=== PATIENT | female | born 1995 | race Two or more races ===

== ENCOUNTER 2016-11-22 19:34 | Emergency (ER) | payer MEDICAID, OTHER ==
[~2016-11-22] VITALS: Ht 170.2 cm; Wt 64.4 kg
[2016-11-22] MEDS ORDERED: TETANUS-DIPTH-ACEL PERTUSSIS 0.5ML SYRG IM ONE (21:00)
[2016-11-22 21:08] VITALS: BP 140/68
== END 2016-11-22 21:29 | disposition home or self-care (01) ==
LOC: ER 19:37
DX: S61.211A Laceration without foreign body of left index finger without damage to nail, initial encounter (principal); Y28.8XXA Contact with other sharp object, undetermined intent, initial encounter; Y93.89 Activity, other specified; Y99.0 Civilian activity done for income or pay; Y92.69 Other specified industrial and construction area as the place of occurrence of the external cause
CPT/HCPCS: 90471; 90715

== ENCOUNTER 2017-04-09 16:44 | Emergency (ER) | payer MEDICAID, OTHER ==
[~2017-04-09] VITALS: Ht 167.6 cm; Wt 63.5 kg
[2017-04-09 18:11] VITALS: BP 119/65
== END 2017-04-09 19:20 | disposition home or self-care (01) ==
LOC: ER 16:45
DX: S56.111A Strain of flexor muscle, fascia and tendon of right index finger at forearm level, initial encounter (principal); X58.XXXA Exposure to other specified factors, initial encounter; Y93.89 Activity, other specified; Y99.8 Other external cause status; Y92.69 Other specified industrial and construction area as the place of occurrence of the external cause; Z91.011 Allergy to milk products
CPT/HCPCS: 36415; 73140; 84702

== ENCOUNTER → 2020-04-07 | Outpatient (CLI) | payer BC ==
[2020-04-07 09:37] LABS: Basophils # (auto) 0.1 10 ^3/uL (0-0.2); Basophils % (auto) 0.7 % (0.0-2.0); Eosinophils # (auto) 0.3 10 ^3/uL (0-0.8); Eosinophils % (auto) 3.3 % (0.0-7.0); Hematocrit 45.4 % (36.0-46.0); Hemoglobin 15.3 g/dL (12.2-16.2); Lymphocytes # (auto) 2.3 10 ^3/uL (0.4-5.4); Lymphocytes % (auto) 26.1 % (10.0-50.0); Mean Corpuscular Hemoglobin 28.9 pg (28.0-32.0); Mean Corpuscular Hgb Conc. 33.6 g/dL (32.0-36.0); Mean Corpuscular Volume 85.9 fL (80.0-100.0); Monocytes # (auto) 0.6 10 ^3/uL (0-1.3); Monocytes % (auto) 6.7 % (0.0-12.0); Neutrophils # (auto) 5.7 10 ^3/uL (1.6-8.6); Neutrophils % (auto) 63.2 % (37.0-80.0); Nucleated Red Blood Cells % 0.1 %; Platelet Count (auto) 359 10^3/uL (140-450); Red Blood Cells 5.28 10^6/uL (4.0-5.20); Red Cell Distribution Width 13.4 % (11.8-14.3); Urine Bacteria NONE SEEN /hpf (None Seen); Urine Blood Negative /uL (Negative); Urine Mucus FEW (None Seen); Urine WBC 6 /hpf (0 - 5)
[2020-04-07 10:17] LABS: Albumin 3.9 g/dL (3.4-5.0); Calcium 9.4 mg/dL (8.5-10.1); Potassium 4.5 mmol/L (3.5-5.1)
[2020-04-07 10:23] LABS: BUN/Creatinine Ratio 16.4; Bilirubin, Total 1.1 mg/dL (0.2-1.0); Total Protein 8.2 g/dL (6.4-8.2)
== END | disposition home or self-care (01) ==
LOC: LAB 09:20
PROVIDERS: ATTEND Nurse Practitioner
DX: E78.5 Hyperlipidemia, unspecified (principal); I10 Essential (primary) hypertension
CPT/HCPCS: 36415; 80053; 80061; 81001; 84443; 85025

== ENCOUNTER → 2021-06-08 | Outpatient (CLI) | payer BC ==
[2021-06-08 07:24] LABS: Basophils # (auto) 0.1 10 ^3/uL (0-0.2); Basophils % (auto) 0.9 % (0.0-2.0); Eosinophils # (auto) 0.2 10 ^3/uL (0-0.8); Eosinophils % (auto) 2.5 % (0.0-7.0); Hematocrit 41.7 % (36.0-46.0); Hemoglobin 14.4 g/dL (12.2-16.2); Lymphocytes # (auto) 2.4 10 ^3/uL (0.4-5.4); Lymphocytes % (auto) 25.1 % (10.0-50.0); Mean Corpuscular Hemoglobin 29.4 pg (28.0-32.0); Mean Corpuscular Hgb Conc. 34.6 g/dL (32.0-36.0); Mean Corpuscular Volume 84.9 fL (80.0-100.0); Monocytes # (auto) 0.7 10 ^3/uL (0-1.3); Neutrophils # (auto) 6.1 10 ^3/uL (1.6-8.6); Neutrophils % (auto) 64.5 % (37.0-80.0); Red Blood Cells 4.91 10^6/uL (4.0-5.20); Red Cell Distribution Width 13.1 % (11.8-14.3); White Blood Cell 9.5 10^3/uL (4.4-10.8)
[2021-06-08 07:32] LABS: Urine Bacteria NONE SEEN /hpf (None Seen); Urine Blood 1+ /uL (Negative); Urine Mucus FEW (None Seen); Urine Specific Gravity 1.024 (1.001-1.035); Urine WBC 1 /hpf (0 - 5)
[2021-06-08 07:58] LABS: Albumin 3.6 g/dL (3.4-5.0); Calcium 9.2 mg/dL (8.5-10.1); Potassium 4.2 mmol/L (3.5-5.1)
[2021-06-08 08:05] LABS: BUN/Creatinine Ratio 15.2; Bilirubin, Total 1.5 mg/dL (0.2-1.0)
== END | disposition home or self-care (01) ==
LOC: LAB 07:08
PROVIDERS: ATTEND Nurse Practitioner
DX: I10 Essential (primary) hypertension (principal); E78.5 Hyperlipidemia, unspecified; R73.9 Hyperglycemia, unspecified
CPT/HCPCS: 36415; 80053; 80061; 81001; 83036; 84443; 85025

== ENCOUNTER → 2023-01-22 | Outpatient (CLI) | payer BC ==
[2023-01-22 09:10] LABS: Basophils # (auto) 0.1 10 ^3/uL (0-0.2); Basophils % (auto) 0.9 % (0.0-2.0); Eosinophils # (auto) 0.2 10 ^3/uL (0-0.8); Eosinophils % (auto) 2.3 % (0.0-7.0); Hematocrit 43.8 % (36.0-46.0); Hemoglobin 15.2 g/dL (12.2-16.2); Lymphocytes # (auto) 2.3 10 ^3/uL (0.4-5.4); Lymphocytes % (auto) 26.8 % (10.0-50.0); Mean Corpuscular Hemoglobin 29.7 pg (28.0-32.0); Mean Corpuscular Hgb Conc. 34.6 g/dL (32.0-36.0); Mean Corpuscular Volume 85.7 fL (80.0-100.0); Monocytes # (auto) 0.5 10 ^3/uL (0-1.3); Monocytes % (auto) 6.1 % (0.0-12.0); Neutrophils # (auto) 5.5 10 ^3/uL (1.6-8.6); Neutrophils % (auto) 63.9 % (37.0-80.0); Nucleated Red Blood Cells % 0.2 %; Red Blood Cells 5.11 10^6/uL (4.0-5.20); Red Cell Distribution Width 13.2 % (11.8-14.3); White Blood Cell 8.7 10^3/uL (4.4-10.8)
[2023-01-22 09:21] LABS: Urine Bacteria NONE SEEN /hpf (None Seen); Urine Blood Negative /uL (Negative); Urine Specific Gravity 1.017 (1.001-1.035); Urine WBC 1 /hpf (0 - 5)
[2023-01-22 09:54] LABS: Calcium 9.2 mg/dL (8.5-10.1); Potassium 3.8 mmol/L (3.5-5.1)
[2023-01-22 10:06] LABS: BUN/Creatinine Ratio 13.6; Total Protein 8.5 g/dL (6.4-8.2)
[2023-01-23 08:06] LABS: RPR Non Reactive (Non Reactive)
== END | disposition home or self-care (01) ==
LOC: LAB 08:20
PROVIDERS: ATTEND Nurse Practitioner
DX: Z11.3 Encounter for screening for infections with a predominantly sexual mode of transmission (principal); I10 Essential (primary) hypertension; E78.5 Hyperlipidemia, unspecified
CPT/HCPCS: 36415; 80053; 80061; 81001; 84443; 85025; 86592; 86703; 87340

== ENCOUNTER → 2023-08-30 | Outpatient (CLI) | payer BC ==
[2023-08-30 12:09] LABS: Basophils # (auto) 0.1 10 ^3/uL (0-0.2); Basophils % (auto) 0.7 % (0.0-2.0); Eosinophils # (auto) 0.5 10 ^3/uL (0-0.8); Eosinophils % (auto) 5.3 % (0.0-7.0); Hematocrit 43.2 % (36.0-46.0); Hemoglobin 14.8 g/dL (12.2-16.2); Lymphocytes % (auto) 31.9 % (10.0-50.0); Mean Corpuscular Hemoglobin 29.6 pg (28.0-32.0); Mean Corpuscular Hgb Conc. 34.2 g/dL (32.0-36.0); Mean Corpuscular Volume 86.5 fL (80.0-100.0); Monocytes # (auto) 0.7 10 ^3/uL (0-1.3); Monocytes % (auto) 7.3 % (0.0-12.0); Neutrophils # (auto) 5.1 10 ^3/uL (1.6-8.6); Neutrophils % (auto) 54.8 % (37.0-80.0); Nucleated Red Blood Cells % 0.1 %; Red Blood Cells 4.99 10^6/uL (4.0-5.20); Red Cell Distribution Width 13.3 % (11.8-14.3); White Blood Cell 9.3 10^3/uL (4.4-10.8)
[2023-08-30 12:17] LABS: Urine Bacteria NONE SEEN /hpf (None Seen); Urine Blood Negative /uL (Negative); Urine Clarity Clear (Clear); Urine Color Yellow (Yellow); Urine Protein, UAD Negative (Negative); Urine Specific Gravity 1.016 (1.001-1.035); Urine Urobilinogen Normal (Negative); Urine WBC <1 /hpf (0 - 5)
[2023-08-30 12:24] LABS: Alanine Aminotransferase 12 U/L (7-40); Albumin 4.4 g/dL (3.2-4.8); Alkaline Phosphatase 100 U/L (46-116); Calcium 9.6 mg/dL (8.5-10.1); Carbon Dioxide 28 mmol/L (20-30); Chloride 106 mmol/L (98-107); Glucose 82 mg/dL (74-106)
[2023-08-30 12:25] LABS: Anion Gap 5 (5-15); Aspartate Aminotransferase 8 U/L (13-40); Cholesterol 159 mg/dL (< 200); Potassium 4.5 mmol/L (3.5-5.1); Sodium 139 mmol/L (136-145)
[2023-08-30 12:41] LABS: BUN/Creatinine Ratio 8.5 (10.0-20.0); Blood Urea Nitrogen 6 mg/dL (9-23); LDL Cholesterol 96 mg/dL (< 100); Triglycerides 111 mg/dL (< 150)
[2023-08-30 12:42] LABS: HDL Cholesterol 50 mg/dL (40-59)
[2023-08-30 12:43] LABS: Bilirubin, Total 1.1 mg/dL (0.2-1.0); Total Protein 7.7 g/dL (5.7-8.2)
== END | disposition home or self-care (01) ==
LOC: LAB 11:52
PROVIDERS: ATTEND Nurse Practitioner
DX: I10 Essential (primary) hypertension (principal); E78.5 Hyperlipidemia, unspecified
CPT/HCPCS: 36415; 80053; 80061; 81001; 83036; 85025

== ENCOUNTER 2024-10-01 08:18 | Emergency (ER) | payer BC, MEDICAID ==
[~2024-10-01] VITALS: Ht 175.3 cm; Wt 78.0 kg
[~2024-10-01 08:18] MED LIST: IBUP-1454 PO
[2024-10-01 08:50] VITALS: BP 128/94; PULSE 84; RESP 17; TEMP 98.7; O2SAT 98
--- NOTE | 2024-10-01 09:11 | DVH ---
CLINICAL INDICATION: pain TECHNIQUE: 3 radiographic views of the right shoulder were obtained. Comparison: None FINDINGS/IMPRESSION: There is no evidence of acute fracture or dislocation. The visualized joint space is well maintained. The alignment is anatomical. There is no radiopaque foreign body.
--- NOTE | 2024-10-01 09:22 | ED.PDOC ---
Musculoskeletal HPI Comments 29 year old presents for right shoulder pain. She is right hand dominant. Described as persistent pain Onset:7 days ago and started suddenly. No injury or trauma Therapies tried: Nothing Denies fevers chills night sweats nausea vomiting redness around the shoulder Denies previous surgeries to the shoulder or significant injury Numbness/tingling down the arm Denies changes, shortness of breath Chief Complaint: Upper Extremity Time Seen by MD: 08:27 Primary Care Provider: NONE Reviewed Notes: Nurses Notes, Medications, Allergies Allergies: Uncoded Allergies: DAIRY (Allergy, Unknown, 11/22/16) Home Meds Active Scripts Ibuprofen (Ibuprofen) 600 Mg Tab, 1 TAB PO Q6HP PRN, #20 TAB Prov:MARIE KARU Nayeli PAC 03/02/24 Information Source: Patient Mode of Arrival: Ambulatory Past Medical History PAST MEDICAL HISTORY: Denies Surgical History: Denies all surgeries RESEARCH ENGINEER History: Ovarian Cysts Family History Family History: Reviewed,noncontributory to illness, Unobtainable Social History Smoker: Non-Smoker Alcohol: Occasionally Drugs: Denies Drug Use Lives In: Home All Other Systems: Reviewed and Negative (Per HPI) Physical Exam General Appearance: No Apparent Distress, Normal HEENT: Normal ENT Inspection, Pharynx Normal, TMs Normal Neck: Full Range of Motion, Non-Tender, Normal, Normal Inspection Respiratory: Chest Non-Tender, Lungs Clear, No Accessory Muscle Use, No Respiratory Distress, Normal Breath Sounds Cardiovascular: No Edema, No JVD, No Murmur, No Gallop, Normal Peripheral Pulses, Regular Rate/Rhythm Breast Exam: Deferred Gastrointestinal: No Organomegaly, Non Tender, No Pulsatile Mass, Normal Bowel Sounds, Soft Genitalia: Deferred Pelvic: Deferred Rectal: Deferred Extremities: No calf tenderness, Normal capillary refill, Normal inspection, Normal range of motion, Non-tender, No pedal edema Musculoskeletal : Extremity Location: Shoulder ( No gross abnormality on inspection. No shoulder drop visible. No clavicular tenderness on palpation. Palpation tenderness to coracoid process and acromion process. No scapular, supraspinat us, infraspinatus tenderness to touch. Limited flexion passive movement due to pain. Pain with abduction. ) Apperance: Normal Neurologic: Alert, printer apprentice II-XII nml as Tested, No Motor Deficits, Normal Affect, Normal Mood, No Sensory Deficits Cerebellar Function: Normal Reflexes: Normal Skin: Dry, Normal Color, Warm Lymphatic: No Adenopathy Was a procedure done? Was a procedure done?: No Differential Diagnosis EXT Differential Diagnosis: Fracture, Sprain, Dislocation X-Ray, Labs, Meds, VS Vital Signs Date Time Temp Pulse Resp B/P (MAP) Pulse Ox O2 Delivery O2 Flow Rate FiO2 10/01/24 08:50 98.7 84 17 128/94 (105) 98 98.7 10/01/24 08:50 84 17 98 Room Air 10/01/24 08:30 98.7 84 17 128/94 (105) 98 X-Ray, Labs, Meds, VS Comment After ROS physical examination no acute injury. Prior to discharge, symptomatic treatment was provided patient reported significant improvement. Findings are consistent with a internal derangement of the shoulder. Patient advised to follow up with PCP and obtain an MRI Patient is stable for discharge at this time. External notes reviewed. Test results and diagnostic imaging interpreted. All diagnostic findings, discharge care, education and instructions provided Follow-up with PCP in 2 to 3 days Patient verbalized understanding and agreed to treatment plan Vital signs stable, afebrile, no acute distress noted Patient ambulatory with strong steady gait Advised to return precautions for any new or worsening symptoms, return to ER immediately for re-evaluation Patient is aware that the purpose of this visit was for an acute medical emergency requiring emergent stabilization. Chronic conditions, including malignancies have not been ruled out. Patient is instructed to follow up with PCP as directed and discharge instructions for continued care and workup. If unable to arrange follow-up, patient is to return to the emergency department for reassessment. Patient (parent or legal guardian if applicable) was given verbal and written discharge instructions and acknowledges understanding. Time of 1ST Reevaluation: 09:20 Reevaluation 1ST: Improved Patient Education/Counseling: Diagnosis, Treatment Family Education/Counseling: Diagnosis, Treatment Departure 1 Departure Time of Disposition: 09:46 Impression: Primary Impression: Internal derangement of right shoulder Disposition: 01 HOME / SELF CARE / HOMELESS Condition: Stable Discharged With: Self Critical Care Note Critical Care Time?: No Stability Stability form required: No Heart Score Heart Score: Heart Score Response (Comments) Value History N/A 0 EKG N/A 0 Age N/A 0 Risk Factors N/A 0 Troponin N/A 0 Total 0 JARED KING NP Oct 01, 2024 09:22
[2024-10-01] MEDS: KETOROLAC TROMETH 30 MG/ML 1ML VIAL IM ONE (09:53)
[2024-10-01] MEDS: methylPREDNISolone SOD SUCC 125 MG/2 ML VL IM ONE (09:54)
[2024-10-01] MEDS ORDERED: NAPR-746 PO (16:13)
== END 2024-10-01 10:25 | disposition home or self-care (01) ==
LOC: ER 08:18
DX: M24.811 Other specific joint derangements of right shoulder, not elsewhere classified (principal)
CPT/HCPCS: 73030; 96372; 99284; J1885; J2919

== ENCOUNTER → 2025-03-12 | Day surgery (SDC) | payer BC, MEDICAID ==
[2025-03-06 09:22] LABS: Basophils # (auto) 0.1 10 ^3/uL (0-0.2); Basophils % (auto) 0.9 % (0.0-2.0); Eosinophils # (auto) 0.2 10 ^3/uL (0-0.8); Eosinophils % (auto) 2.4 % (0.0-7.0); Hematocrit 46.8 % (36.0-46.0); Hemoglobin 16.2 g/dL (12.2-16.2); Lymphocytes # (auto) 2.5 10 ^3/uL (0.4-5.4); Lymphocytes % (auto) 28.5 % (10.0-50.0); Mean Corpuscular Hemoglobin 29.1 pg (28.0-32.0); Mean Corpuscular Hgb Conc. 34.5 g/dL (32.0-36.0); Mean Corpuscular Volume 84.3 fL (80.0-100.0); Monocytes # (auto) 0.6 10 ^3/uL (0-1.3); Monocytes % (auto) 7.2 % (0.0-12.0); Neutrophils # (auto) 5.4 10 ^3/uL (1.6-8.6); Nucleated Red Blood Cells % 0.1 %; Platelet Count (auto) 345 10^3/uL (140-450); Red Blood Cells 5.55 10^6/uL (4.0-5.20); White Blood Cell 8.8 10^3/uL (4.4-10.8)
[2025-03-06 09:27] LABS: Urine Bacteria FEW /hpf (None Seen); Urine Blood Negative /uL (Negative); Urine Clarity Clear (Clear); Urine Color Light-Yellow (Yellow); Urine Protein, UAD Negative (Negative); Urine Squamous Epithelial Cell FEW /hpf (<5); Urine Urobilinogen Normal (Negative); Urine WBC 1 /HPF (0-5)
[2025-03-06 09:34] LABS: INR 1.04 (0.9-1.15); Partial Thromboplastin Time 28.9 SEC (24.5-34.5)
[2025-03-06 09:48] LABS: Alanine Aminotransferase 13 U/L (7-40); Alkaline Phosphatase 113 U/L (46-116); Anion Gap 9 (5-15); BUN/Creatinine Ratio 12.2 (10.0-20.0); Blood Urea Nitrogen 9 mg/dL (9-23); Calcium 10.2 mg/dL (8.7-10.4); Carbon Dioxide 27 mmol/L (20-31); Chloride 102 mmol/L (98-107); Glucose 90 mg/dL (74-106); Potassium 4.1 mmol/L (3.5-5.1); Sodium 138 mmol/L (136-145)
[2025-03-06 09:50] LABS: Albumin 5.1 g/dL (3.2-4.8); Aspartate Aminotransferase 13 U/L (13-40); Total Protein 8.3 g/dL (5.7-8.2)
[~2025-03-12] VITALS: Ht 172.7 cm; Wt 78.0 kg
[~2025-03-12] MED LIST changes: +ACETAMINOPHEN IV 1000 MG/100ML (10MG/ML) IV PRN; +ASPI-498 OR; +BUPIVACAINE 0.5% MPF INJ 30ML SDV IJ ONE; +CLINDAMYCIN 600MG IV 0 ML IV ONE; +DexAMETHasone SOD PHOS 10MG/1ML VIAL INJ ONE; +EPINEPHrine HCL 1 MG/1 ML AMP ONE; +HYDR1TAB97 PO; +HYDROmorphone HCL 2 MG/ML VL/or syr ONE; -IBUP-1454 PO; +MEPERIDINE HCL (25 MG/ML) 1ML VIAL IV PRN; +ONDANSETRON HCL 4 MG/2 ML VIAL IV ONE; +ONDANSETRON HCL 4 MG/2 ML VIAL ONE; +PROPOFOL 10 MG/ML 20 ML IV ONE; +ROPIVACAINE 0.5% (5MG/ML) 20ML AMPULE IJ ONE; +SUCCINYLCHOLINE CHLORIDE 20 MG/ML 10ML VIAL IV ONE; +fentaNYL CITRATE 100 MCG/2 ML VL ONE
[2025-03-12 11:54] VITALS: RESP 12; TEMP 97.8; O2SAT 96
--- NOTE | 2025-03-12 11:58 | DVHOP2 ---
Operative Report - 2 Report Details Date: 03/12/25 Preop Diagnosis: Right shoulder superior labral tear Postop Diagnosis: 10 point review of systems is negative except per HPI Surgeon: Amina Hudson MD Livestock Sales Representative: Cheryl Rubalcava, Physician Livestock Sales Representative Anesthesiologist: Dr Mendoza Anesthesia: General, Regional Implant: [employer] Fiber[employer] x2 Consent: The patient was informed of the risks and benefits of the procedure. These include but are not limited to complications of anesthesia, postoperative infection, incomplete relief of symptoms, recurrence of symptoms, damage to blood vessels, nerves and tendons, deep venous thrombosis, pulmonary embolism and possible need for repeat surgery in the future. Complications: None Estimated Blood Loss: 5 mL Indications for Surgery: The patient is a 29-year-old female who presented to the clinic with a history of clicking and popping and pain in the right shoulder for many months. She experienced a sensation while in the gym while exercising. After that she did have significant pain. She tried various conservative management including nonoperative observation, physical therapy and exercises. However the pain continued. Surgery in the form of diagnostic arthroscopy with superior labral repair, possible was rotator cuff repair versus subacromial decompression was discussed with her. Benefits, risks and treatment alternatives were discussed. Specific complications of the surgery such as neurovascular injury, infection, arthrofibrosis, loss of limb or life were discussed. She decided to proceed with the surgical option. Name of Procedure Performed Right shoulder arthroscopy with superior labral repair Procedure Details Procedure Details: Patient was identified in the preoperative holding area and the surgical site was marked. Consent was verified. The patient was brought into the operating room and placed supine on the operating table. General anesthesia was administered. She was now brought into the lateral position. All the bony prominences were appropriately padded. The arm was examined under anesthesia an d was found to have normal range of motion. The shoulder was ligamentously stable. Slight posterior subluxation was noted. A standard posterior portal established, a 30 degree scope was inserted. A standard anterior portal established, a probe was inserted and the findings were as follows 1. Type II superior labral tear, anterior and posterior to the biceps tendon, 3-5 mm 2. Normal biceps tendon 3. Normal rotator cuff including subscapularis 4. No anterior or posterior labral tear 5. Normal capsular volume, negative drive-through sign. 6. Intact glenohumeral cartilage The superior labrum was probed and was found to be unstable. The bed was prepared using a small shaver and thermal ablation device. The anterior labrum was intact. No significant anterior capsular laxity was noted. The posterior labrum was also thoroughly probed. A small area of fraying was noted, however no crack lesion or significant tear noted in the posterior labrum. Based on these findings, I decided to repair the superior labrum. One anterior portal was established. The anterior portal had a cannula that was inserted. Next, a curved guide was inserted through the anterosuperior portal, just posterior to the biceps tendon. The footprint was cleaned with help of a shaver and thermal ablation device. The posterior labral anchor was inserted using a percutaneous technique. A percutaneous kit was used by [employer]. The spinal needle was inserted at the posterior superior labrum through the rotator cuff. Care was taken to stay medial to the cable so as to go through the muscular tissue. The drill guide was inserted. The drill was inserted and then the anchor was deployed. Excellent fixation was noted. Next a suture lasso device was inserted from the top of the biceps tendon. The Nitinol wire was used to pass the repair stitch. This was per household assistant's instructions. Excellent reduction and repair of the superior labrum was noted. A probe was inserted to ensure complete seating of the labrum. The anterosuperior labrum was now repaired. All the steps were carried out through the cannula itself. Care was taken not to over tighten the ligament around the biceps tendon. The biceps tendon anchor was very stable. Once again thorough diagnostic arthroscopy was carried out to ensure there was no other ligament tear. Disposition: Good, the patient extubated and taken recovery with any complications, the patient was placed in a brace. Plan: To do pendulum exercises out of the sling. Follow-up in 1 week to start range of motion exercises. Condition Good Disposition Home AMINA HUDSON MD Mar 12, 2025 11:58
[2025-03-12] MEDS: HYDROmorphone HCL 2 MG/ML VL/or syr IV PRN (12:35)
[2025-03-12 13:07] VITALS: BP 139/84; PULSE 79; RESP 16; O2SAT 98
== END | disposition home or self-care (01) ==
LOC: SUR 08:48
PROVIDERS: ATTEND Orthopaedic Surgery Sports Medicine
DX: S43.431A Superior glenoid labrum lesion of right shoulder, initial encounter (principal); S43.021A Posterior subluxation of right humerus, initial encounter; M75.41 Impingement syndrome of right shoulder; G89.18 Other acute postprocedural pain; Z79.899 Other long term (current) drug therapy; Z98.890 Other specified postprocedural states; Z88.8 Allergy status to other drugs, medicaments and biological substances; X58.XXXA Exposure to other specified factors, initial encounter; Y93.89 Activity, other specified; Y92.89 Other specified places as the place of occurrence of the external cause; Y99.8 Other external cause status
CPT/HCPCS: 29807; 36415; 64415; 80053; 81001; 85025; 85610; 85730; C1713; J0330; J1100; J1171; J2405; J2704; J2795; J3010; A4565; J0171; J3490